=== PATIENT | female | born 1980 | race Caucasian/White ===

== ENCOUNTER 2017-04-02 07:40 | Observation (INO) | payer SELFPAY ==
[~2017-04-02] VITALS: Ht 160 cm; Wt 72.0 kg
[~2017-04-02 07:40] MED LIST: CITA20TA4 PO
[2017-04-02 07:43] VITALS: BP 149/87; PULSE 72; RESP 14; TEMP 98; O2SAT 97
[2017-04-02 08:12] LABS: AUTOMATED NEUTROPHIL # 5.3 TH/MM3 (1.8-7.7); BASOPHIL # 0.1 TH/MM3 (0-0.2); EOSINOPHIL # 0.4 TH/MM3 (0-0.4); EOSINOPHIL % 4.3 % (0.0-4.0); HEMATOCRIT 41.3 % (35.0-46.0); HEMO FLAGS DIFF FINAL; LYMPH % 25.2 % (9.0-44.0); LYMPHOCYTE # 2.1 TH/MM3 (1.0-4.8); MEAN CELL VOLUME 91.6 FL (80.0-100.0); MEAN CORPUSCULAR HEMOGLOBIN 30.4 PG (27.0-34.0); MEAN CORPUSCULAR HGB CONC 33.2 % (32.0-36.0); MONO % 7.4 % (0.0-8.0); NEUT % 62.1 % (16.0-70.0); PLATELET COUNT 169 TH/MM3 (150-450); RED BLOOD COUNT 4.51 MIL/MM3 (4.00-5.30); RED CELL DISTRIBUTION WIDTH 13.2 % (11.6-17.2); WHITE BLOOD COUNT 8.5 TH/MM3 (4.0-11.0)
--- NOTE | 2017-04-02 08:18 | PD ---
HPI Chief Complaint: Skin Problem Time Seen by Provider: 07:56 Travel History International Travel<30 days: No Contact w/Intl Traveler<30days: No Traveled to known affect area: No History of Present Illness HPI This is a 37-year-old female who presents to the emergency department with an infection of her left breast, constant for 4 days, severe associated with yellow drainage from her nipple. She says she's had this infection 4 times in the past. A third of the antibiotics although it is the worst ever been. She was trying to hold out from going to the doctor because her insurance doesn't set in until April 05 but she hasn't been sleeping and she is in severe pain so she came to the emergency department. She has felt feverish. He says she had a mammogram a year ago which was normal. [facility] Past Medical History Medical History: Denies Significant Hx Tetanus Vaccination: < 5 Years ?: Not Past Surgical History Surgical History: No Previous Surgery Social History Alcohol Use: No Tobacco Use: Yes Substance Use: No Allergies-Medications (Allergen,Severity, Reaction): Coded Allergies: No Known Allergies (Verified , 04/02/17) Reported Meds & Prescriptions Reported Meds & Active Scripts Active No Active Prescriptions or Reported Medications Review of Systems Except as stated in HPI: all other systems reviewed are Neg Physical Exam Narrative GENERAL:Well appearing, no acute distress SKIN: 6x6 cm area of erythema and induration with some fluctuance at 7:00 involving the left breast HEAD: Atraumatic. Normocephalic. EYES: Pupils equal and round. No injection or drainage. ENT: Moist mucous membranes NECK: Trachea midline. CARDIOVASCULAR: Regular rate and rhythm. No murmur appreciated. RESPIRATORY: Clear to auscultation. Breath sounds equal bilaterally. GASTROINTESTINAL: Abdomen soft, non-tender, nondistended. MUSCULOSKELETAL: No obvious deformities. NEUROLOGICAL: Awake and alert. No obvious cranial nerve deficits. Moving all extremities. PSYCHIATRIC: Appropriate mood and affect; insight and judgment normal. Data Data Last Documented VS Vital Signs Date Time Temp Pulse Resp B/P Pulse Ox O2 Delivery O2 Flow Rate FiO2 04/02/17 07:43 98.0 72 14 149/87 97 Orders Complete Blood Count With Diff (04/02/17 07:56) Comprehensive Metabolic Panel (04/02/17 07:56) ^ Insert Iv (04/02/17 07:56) Us Breast Unilateral (04/02/17 ) Clindamycin Inj (Cleocin Inj) (04/02/17 09:30) Morphine Inj (Morphine Inj) (04/02/17 09:45) Admit Order (Ed Use Only) (04/02/17 09:52) Labs Laboratory Tests Test 04/02/17 07:58 White Blood Count 8.5 TH/MM3 Red Blood Count 4.51 MIL/MM3 Hemoglobin 13.7 GM/DL Hematocrit 41.3 % Mean Corpuscular Volume 91.6 FL Mean Corpuscular Hemoglobin 30.4 PG Mean Corpuscular Hemoglobin 33.2 % Concent Red Cell Distribution Width 13.2 % Platelet Count 169 TH/MM3 Mean Platelet Volume 8.5 FL Neutrophils (%) (Auto) 62.1 % Lymphocytes (%) (Auto) 25.2 % Monocytes (%) (Auto) 7.4 % Eosinophils (%) (Auto) 4.3 % Basophils (%) (Auto) 1.0 % Neutrophils # (Auto) 5.3 TH/MM3 Lymphocytes # (Auto) 2.1 TH/MM3 Monocytes # (Auto) 0.6 TH/MM3 Eosinophils # (Auto) 0.4 TH/MM3 Basophils # (Auto) 0.1 TH/MM3 CBC Comment DIFF FINAL Differential Comment Sodium Level 140 MEQ/L Potassium Level 3.8 MEQ/L Chloride Level 106 MEQ/L Carbon Dioxide Level 26.1 MEQ/L Anion Gap 8 MEQ/L Blood Urea Nitrogen 17 MG/DL Creatinine 0.76 MG/DL Estimat Glomerular Filtration 86 ML/MIN Rate Random Glucose 98 MG/DL Calcium Level 8.5 MG/DL Total Bilirubin 0.3 MG/DL Aspartate Amino Transf 17 U/L (AST/SGOT) Alanine Aminotransferase 20 U/L (ALT/SGPT) Alkaline Phosphatase 109 U/L Total Protein 7.5 GM/DL Albumin 3.4 GM/DL MDM Medical Decision Making Medical Screen Exam Complete: Yes Emergency Medical Condition: Yes Interpretation(s) Afebrile, no tachycardia, mild hypertension No leukocytosis Electrolytes are reassuring Last 24 hours Impressions Breast Ultrasound 04/02/17 0000 Signed Impressions: Service Date/Time: Sunday, April 02, 2017 08:13 - CONCLUSION: Subcutaneous avascular abnormality at the 9:00 position, 3 cm from the nipple measuring up to 3.2 cm. Imaging appearance could fit with an abscess and this should be correlated with the clinical history and physical examination. In a patient of this age breast abscesses are typically seen in a patient who is either a smoker or recently breast-feeding. If drainage is performed, suggest followup diagnostic mammogram and ultrasound on an outpatient basis to confirm resolution and exclude any signs of malignancy. Shoaib Vivas MD Differential Diagnosis Breast abscess, mastitis, breast cancer, sepsis Narrative Course This is a 37-year-old female who presents to the emergency department with redness and pain involving the left breast. She has what I think is a discrete abscess in the left breast adjacent to the nipple area and she is placed on a monitor and an IV was established. Labs are obtained which were reassuring. She is very painful. Ultrasound demonstrates a 3 cm fluid collection. I spoke to Dr. Gross who was on-call for surgery. He recommended that the patient be evaluated for a interventional radiology for possible ultrasound-guided aspiration or incision and drainage. Patient was given a dose of clindamycin and admitted to the residents for further management. Diagnosis Primary Impression: Abscess of left breast Admitting Information Admitting Physician Requests: Observation Scripts No Active Prescriptions or Reported Meds Keara Adame MD Apr 02, 2017 08:18
[2017-04-02 08:32] LABS: ANION GAP 8 MEQ/L (5-15); AST (GOT) 17 U/L (15-37); BICARBONATE 26.1 MEQ/L (21.0-32.0); BLOOD UREA NITROGEN 17 MG/DL (7-18); CHLORIDE 106 MEQ/L (98-107); GLOMERULAR FILTRATION RATE 86 ML/MIN (>89); POTASSIUM 3.8 MEQ/L (3.5-5.1); SODIUM (NA) 140 MEQ/L (136-145)
[2017-04-02 08:34] LABS: ALT (GPT) 20 U/L (10-53)
[2017-04-02 08:36] LABS: ALKALINE PHOSPHATASE 109 U/L (45-117); TOTAL BILIRUBIN ADULT 0.3 MG/DL (0.2-1.0)
--- NOTE | 2017-04-02 09:04 | RADRPT ---
EXAM DATE/TIME: 04/02/2017 08:13 [facility] COMPARISON: No previous studies available for comparison. INDICATIONS : Left breast abscess. MEDICAL HISTORY : Left breast pain, swelling, and redness. SURGICAL HISTORY : None. ENCOUNTER: Initial ACUITY: 4-6 days PAIN SCORE: 9/10 LOCATION: Left breast. FINDINGS: Simpson scale and Doppler imaging was performed at the area of clinical concern which is located at the 9: 00 position, 3 cm from the nipple. In the immediate subcutaneous tissues there is a hypoechoic avascu lar structure measuring 2.4 x 3.2 x 1.5 cm. It demonstrates mild increased blood flow along the perip north. No connection with the skin surface is visualized. Imaging was also performed at the 9:00 posit ion, 6 cm from the nipple and this area demonstrates no abnormality. CONCLUSION: Subcutaneous avascular abnormality at the 9:00 position, 3 cm from the nipple measuring up to 3.2 cm. Imaging appearance could fit with an abscess and this should be correlated with the clinical history and physical examination. In a patient of this age breast abscesses are typically seen in a patient who is either a smoker or recently breast-feeding. If drainage is performed, suggest followup diagnos tic mammogram and ultrasound on an outpatient basis to confirm resolution and exclude any signs of ma lignancy. Shoaib Vivas MD on April 02, 2017 at 8:59 Board Certified Radiologist. This report was verified electronically.
[2017-04-02] MEDS ORDERED: CLINDAMYCIN INJ 600 MG in SODIUM CHLORIDE 0.9% INJ 100 ML IV ONE (09:30)
[2017-04-02] MEDS ORDERED: MORPHINE SULFATE 4 MG/ML INJ IV PUSH ONE (09:45)
--- NOTE | 2017-04-02 10:38 | HHI.HP ---
HPI Service Family Medicine Primary Care Physician No Primary Care Physician Admission Diagnosis breast abscess Diagnoses: International Travel<30 Days: No Contact w/Intl Traveler<30days: No Known Affected Area: No History of Present Illness Pt is a 37-year-old female presenting to the ED due to a skin infection of her left breast. She reports that the infection has been ongoing for the past 4 days. She has had 3 similar infections in the past 2 years. Prior infections resolved after treatment with oral antibiotics. The area of infection has never been as large as it is now. Pain started to become severe about 3 days ago. Last night she started to have green nipple discharge, nonbloody. Pain is located throughout her left breast. Sharp in quality, 10/ 10 in intensity, no radiation. She denies any other type of chest pain. She had a mammogram done in 2014 due to an abscess, results were normal. Patient reports that she has had an intermittent discharge from her nipples white in color since having her last child who is currently 14 years old. She denies any bloody nipple discharge. LMP 03/15-03/20. Discharge is more noticeable when she has her menstrual period. She endorses subjective fever and chills, nausea. Review of Systems Constitutional: COMPLAINS OF: Fever, Chills Eyes: DENIES: Blurred vision Ears, nose, mouth, throat: DENIES: Vertigo Respiratory: DENIES: Shortness of breath Cardiovascular: DENIES: Chest pain Gastrointestinal: DENIES: Abdominal pain Genitourinary: DENIES: Abnormal vaginal bleeding Integumentary: COMPLAINS OF: Breast skin changes, Nipple discharge Hematologic/lymphatic: DENIES: Lymphadenopathy Neurologic: COMPLAINS OF: Headache Past Family Social History Past Medical History Psoriasis Emphysema, not on any home medications Hypoglycemia 3 miscarriages youngest child is 14 yo Periods occur every 28-30 days, last 5 days, hx of irregular periods Previously took control pills and depo shot in 2012 to ??regulate periods Past Surgical History None Reported Medications Reported Meds & Active Scripts Active No Active Prescriptions or Reported Medications Excedrin Allergies: Coded Allergies: No Known Allergies (Verified , 04/02/17) Active Ordered Medications Inpatient Medications Acetaminophen (Tylenol) 650 mg Q4H PRN PO TEMP > 100.4; Start 04/02/17 at 11:00 Acetaminophen/ Hydrocodone Bitart ([place] 5-325 Mg) 1 tab Q4H PRN PO PAIN SCALE 1 TO 5; Start 04/02/17 at 11:30 Acetaminophen/ Hydrocodone Bitart ([place] 10-325 Mg) 1 tab Q4H PRN PO PAIN SCALE 6 TO 10; Start 04/02/17 at 11:30 Albuterol Sulfate (Albuterol Neb) 2.5 mg Q2HR NEB PRN INH SHORTNESS OF BREATH; Start 04/02/17 at 14:00 Albuterol/ Ipratropium (Duoneb Neb) 1 ampule Q4HR NEB PRN INH SHORTNESS OF BREATH; Start 04/02/17 at 16:00 Clindamycin Phosphate/Sodium Chloride (Cleocin Inj/NS Inj) 102 ml @ 104 mls/hr Q8H IV ; Start 04/02/17 at 18:00 Influenza Virus Vaccine (Flu (Quadrivalent) Vaccine Inj) 0.5 ml ONCE ONCE IM ; Start 04/03/17 at 10:00; Stop 04/03/17 at 10:01 Magnesium Hydroxide 30 ml 30 ml Q12H PRN PO MILD - MODERATE CONSTIPATION; Start 04/02/17 at 11:00 Morphine Sulfate (Morphine Inj) 2 mg Q3H PRN IV PUSH BREAKTHROUGH PAIN; Start 04/02/17 at 11:45 Naloxone HCl (Narcan Inj) 0.4 mg UNSCH PRN IV SEE LABEL COMMENTS; Start at 11:00 Ondansetron HCl (Zofran Inj) 4 mg Q6H PRN IVP NAUSEA OR VOMITING; Start at 11:00 Senna/Docusate Sodium (Consuelo-Colace) 1 tab BID PO ; Start 04/02/17 at 21:00 Sodium Chloride (NS Flush) 2 ml BID IV FLUSH ; Start 04/02/17 at 21:00 Temazepam (Restoril) 15 mg HS PRN PO INSOMNIA; Start 04/02/17 at 11:00 Family History Mother: Hysterectomy at 32 due to uterine cancer, cholecystectomy Father: at 48 from complications after multiple abdominal surgeries Social History 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 HEAD: Atraumatic. Normocephalic. EYES: Pupils equal round and reactive. Extraocular motions intact. No scleral icterus. No injection or drainage. ENT: Nose without bleeding, purulent drainage or septal hematoma. Pt with upper dentures. Throat without erythema, tonsillar hypertrophy or exudate. Uvula midline. Airway patent. NECK: Trachea midline. Supple, nontender, no meningeal signs. CHEST: Left breast: Patient with 4 cm right 2 cm area of induration. Edematous and erythematous. Exquisitely tender to light touch. No active drainage from this lesion. Patient with green dried crust below nipple. No active nipple discharge. Not able to express any nipple discharge. +axillary lymphadenopathy, tenderness with palpation. Pt with fibrocystic breast tissue. Right breast: Normal appearance of right breast. No axillary lymphadenopathy. No nipple discharge. FIbrocystic breast tissue. CARDIOVASCULAR: Regular rate and rhythm without murmurs, gallops, or rubs. RESPIRATORY: Clear to auscultation. Breath sounds equal bilaterally. No wheezes , rales, or rhonchi. GASTROINTESTINAL: Abdomen soft, non-tender, nondistended. No hepato-splenomegaly , or palpable masses. No guarding. MUSCULOSKELETAL: Extremities without clubbing, cyanosis, or edema. No joint tenderness, effusion, or edema noted. No calf tenderness. Negative Homans sign bilaterally. NEUROLOGICAL: Awake and alert. Cranial nerves II through XII intact. Motor and sensory grossly within normal limits. Five out of 5 muscle strength in all muscle groups. Normal speech. Laboratory Laboratory Tests Test 04/02/17 07:58 White Blood Count 8.5 Red Blood Count 4.51 Hemoglobin 13.7 Hematocrit 41.3 Mean Corpuscular Volume 91.6 Mean Corpuscular Hemoglobin 30.4 Mean Corpuscular Hemoglobin 33.2 Concent Red Cell Distribution Width 13.2 Platelet Count 169 Mean Platelet Volume 8.5 Neutrophils (%) (Auto) 62.1 Lymphocytes (%) (Auto) 25.2 Monocytes (%) (Auto) 7.4 Eosinophils (%) (Auto) 4.3 Basophils (%) (Auto) 1.0 Neutrophils # (Auto) 5.3 Lymphocytes # (Auto) 2.1 Monocytes # (Auto) 0.6 Eosinophils # (Auto) 0.4 Basophils # (Auto) 0.1 CBC Comment DIFF FINAL Differential Comment Sodium Level 140 Potassium Level 3.8 Chloride Level 106 Carbon Dioxide Level 26.1 Anion Gap 8 Blood Urea Nitrogen 17 Creatinine 0.76 Estimat Glomerular Filtration 86 Rate Random Glucose 98 Calcium Level 8.5 Total Bilirubin 0.3 Aspartate Amino Transf 17 (AST/SGOT) Alanine Aminotransferase 20 (ALT/SGPT) Alkaline Phosphatase 109 Total Protein 7.5 Albumin 3.4 Result Diagram: 04/02/17 0758 04/02/17 0758 Imaging Last 24 hours Impressions Breast Ultrasound 04/02/17 0000 Signed Impressions: Service Date/Time: Sunday, April 02, 2017 08:13 - CONCLUSION: Subcutaneous avascular abnormality at the 9:00 position, 3 cm from the nipple measuring up to 3.2 cm. Imaging appearance could fit with an abscess and this should be correlated with the clinical history and physical examination. In a patient of this age breast abscesses are typically seen in a patient who is either a smoker or recently breast-feeding. If drainage is performed, suggest followup diagnostic mammogram and ultrasound on an outpatient basis to confirm resolution and exclude any signs of malignancy. Shoaib Vivas MD Assessment and Plan Assessment and Plan Pt is a 37-year-old female admitted due to left breast abscess. General surgery consulted. Code Status Full Discussed Condition With DW Dr. Lebron, PGY1 WDW Dr. Danielson Problem List: (1) Abscess of left breast Status: Acute Plan: Patient reports several recurrent left breast abscesses over the past 2 years. Pt with significant smoking history, Also endorses occasional nipple discharge, worse during her menstrual periods, see plan below. -General surgery consulted for possible surgical drainage, appreciate recommendations and possible intervention -Consider culture of nipple discharge if there is additional drainage -Clindamycin 300mg IV TID, can transition to PO upon discharge -Warm compresses to be applied QID (2) Nipple discharge Status: Acute Plan: Pt reports intermittent bilateral nipple discharge, more significant during her menses. Pt reports benign mammogram in 2014. -Possibly physiologic, will check PTH to rule out hyperprolactinemia -Consider obtaining sample if pt develops discharge. (3) History of emphysema Status: Acute Plan: Pt reports history of emphysema, her breathing has been well-controlled without any prescription medications. -Albuterol neb Q2hrs PRN SOB -Duonebs Q4hrs PRN SOB -Continue to monitor (4) FEN/PPX Status: Acute Plan: Fluid: None, pt able to tolerate PO Electrolytes: within normal limits, ocntinue to monitor Nutrition: regular diet DVT PPX: Will hold in anticipation of surgical drainage of abscess GI PPX: Not indicated Yusef Rowan MD R2 Apr 02, 2017 10:38
[2017-04-02] MEDS ORDERED: ONDANSETRON HCL 4 MG/2 ML VIAL IVP PRN (11:00)
[2017-04-02] MEDS ORDERED: SODIUM CHLORIDE 0.9% FLUSH 10 ML FLUSH IV FLUSH PRN (11:00)
[2017-04-02] MEDS ORDERED: TEMAZEPAM 15 MG CAP PO PRN (11:00)
[2017-04-02] MEDS ORDERED: MAGNESIUM HYDROXIDE SUSP 30 ML CUP PO PRN (11:00)
[2017-04-02] MEDS ORDERED: NALOXONE HCL 0.4 MG/ML AMP IV PRN (11:00)
[2017-04-02] MEDS ORDERED: ACETAMINOPHEN 325 MG TAB PO PRN (11:00)
[2017-04-02] MEDS ORDERED: ACETAMINOPHEN/HYDROcodone 325 MG/10 MG TAB PO PRN (11:30)
[2017-04-02] MEDS ORDERED: ACETAMINOPHEN/HYDROcodone 325 MG/5 MG TAB PO PRN (11:30)
[2017-04-02] MEDS ORDERED: MORPHINE SULFATE 4 MG/ML INJ IV PUSH PRN (11:45)
[2017-04-02 12:08] VITALS: O2SAT 97
[2017-04-02] MEDS ORDERED: RESP: ALBUTEROL 2.5 MG/3 ML NEB (PRN) INH (14:00)
[2017-04-02 15:17] VITALS: BP 122/78; PULSE 61; RESP 18; TEMP 98.6; O2SAT 98
[2017-04-02 15:45] LABS: INTERNATIONAL NORMALIZED RATIO 0.9 RATIO; PROTHROMBIN TIME - PATIENT 10.3 SEC (9.8-11.6)
[2017-04-02] MEDS ORDERED: LIDOCAINE HCL 1% PF 30 ML VIAL ONE (15:55)
[2017-04-02] MEDS ORDERED: RESP: ALBUTEROL 2.5 MG/IPRATROPIUM 0.5 MG NEB (PRN) INH (16:00)
--- NOTE | 2017-04-02 16:07 | PD.RAD ---
Post US Procedure Prog Note Pre Procedure Diagnosis: (1) Abscess of left breast Post Procedure Diagnosis: (1) Abscess of left breast (2) Nipple discharge Procedure Date: Apr 02, 2017 Supervising Radiologist: Shoaib Vivas Proceduralist/Assist: Kelly Echols RDMS Estimated blood loss: minimal Anesthesia: Local Plan of Activity Patient to Unit: Other (ED) Patient Condition: Good Additional Comments: superficial breast abscess partially decompressed with aspiration. Purulent nipple discharge during aspiration. See PACS Report for procedural detail/treatment Drainage Procedure Procedure 1 Imaging Guidance: Ultrasound Side: Left Procedure Type: Abscess Drainage Fluid Removal (CCs): 4 Fluid Description: Green Findings: 4cc green purulent material aspirated and saved for culture. There remains abnormal inflamed material that is too thick for aspiration. Plan Return to ED. Will need 10 to 14 day course of outpatient antibiotics then followup imaging to ensure resolution. May need repeat aspiration. Consider breast surgeon followup. Shoaib Vivas MD Apr 02, 2017 16:07
[2017-04-02 16:18] VITALS: BP 121/79; PULSE 68; RESP 18; TEMP 98.1; O2SAT 97
--- NOTE | 2017-04-02 16:21 | RADRPT ---
EXAM DATE/TIME: 04/02/2017 15:13 [facility] COMPARISON: No previous studies available for comparison. INDICATIONS : Left breast abscess. MEDICAL HISTORY : Left breast pain, swelling, and redness. SURGICAL HISTORY : None. ENCOUNTER: Subsequent ACUITY: 4 - 6 days PAIN SCORE: 10/10 LOCATION: Left breast. FLUID: Total volume of 4 cc of cloudy, red green fluid was removed. Fluid was sent to lab for ordered studies. Post procedure scanning reveals no hematoma or other complication. TECHNIQUE: 1. Ultrasound guidance for needle aspiration. 2. Aspiration. The risks, benefits, and alternatives to ultrasound guided aspiration were explained to the patient i n detail including the risk of bleeding and infection. Written and verbal informed consent was obtai giulia. With the patient on the ultrasound table, ultrasound imaging was used to select the most appropriate approach for aspiration. The patient's medial left breast demonstrates marked erythema with visible lump. The adjacent nipple demonstrates a retraction and abnormal appearance with slight purulent drai nage from the nipple. Overlying skin was prepped and draped in the usual sterile fashion and with loc al anesthetic a dermatotomy was made with an 11 blade scalpel. An 18 gauge needle was utilized to asp irate. CONCLUSION: Uncomplicated left breast abscess aspiration with removal of 4 cc of green purulent material. Sample was saved and sent to lab for microbiology analysis. The abscess has decreased in size following the procedure however, inflamed infected material remains. Consider breast surgeon consultation versus 2 week outpatient antibiotic trial with followup ultrasound imaging to confirm resolution. If it does n ot resolve repeat aspiration may be needed. Patient ultimately should have diagnostic mammogram and u ltrasound followup. Shoaib Vivas MD on April 02, 2017 at 16:16 Board Certified Radiologist. This report was verified electronically.
--- NOTE | 2017-04-02 16:53 | PD.CONS ---
cc: German Gross MD HPI Service General Surgery Consult Requested By Dr. Rowan Reason for Consult LEFT breast abscess Primary Care Physician No Primary Care Physician History of Present Illness This is a 37-year-old female with past medical history of psoriasis, stage I emphysema and hypoglycemia. She developed a sharp pain in her LEFT breast that she rates a 10 out of 10. She first noticed the pain and lump in her left breast approximately 4 days prior to admission. She has had 4 similar episodes in the past and have been treated with antibiotics. An ultrasound of the LEFT breast was obtained which showed a subcutaneous avascular abscess fluid collection at the 9 o'clock position. An ultrasound-guided breast aspiration has already been ordered. The patient had a mammogram done in 2014 which was normal. A General Surgery consultation has been requested for evaluation of left breast abscess. Review of Systems Constitutional: DENIES: Fever, Chills, Dizziness Endocrine: DENIES: Polydipsia, Polyuria, Polyphagia Eyes: DENIES: Diplopia Ears, nose, mouth, throat: DENIES: Hearing loss Respiratory: DENIES: Cough, Snoring Cardiovascular: DENIES: Palpitations, Syncope Gastrointestinal: DENIES: Abdominal pain, Nausea, Vomiting Genitourinary: DENIES: Urinary frequency, Urinary incontinence Musculoskeletal: DENIES: Joint pain Integumentary: COMPLAINS OF: Breast masses (LEFT breast: 9 oclock position redness/tender ) Hematologic/lymphatic: DENIES: Bruising Immunologic/allergic: DENIES: Eczema Neurologic: DENIES: Abnormal gait, Headache Psychiatric: DENIES: Confusion, Mood changes, Depression Past Family Social History Past Medical History Psoriasis Stage I emphysema Hypoglycemia Past Surgical History None Reported Medications None Allergies: Coded Allergies: No Known Allergies (Verified , 04/02/17) Active Ordered Medications Current Medications Medications (Trade) Dose Ordered Sig/Zahira Route Start Time Stop Time Status Last Admin (NS Flush) 2 ml UNSCH PRN IV FLUSH 04/02/17 11:00 (NS Flush) 2 ml BID IV FLUSH 04/02/17 21:00 (Tylenol) 650 mg Q4H PRN PO 04/02/17 11:00 (Zofran Inj) 4 mg Q6H PRN IVP 04/02/17 11:00 (Restoril) 15 mg HS PRN PO 04/02/17 11:00 (Narcan Inj) 0.4 mg UNSCH PRN IV 04/02/17 11:00 (Consuelo-Colace) 1 tab BID PO 04/02/17 21:00 Magnesium Hydroxide 30 ml 30 ml Q12H PRN PO 04/02/17 11:00 (Cleocin Inj/NS Inj) 102 ml @ 104 mls/hr Q8H IV 04/02/17 18:00 ([facility] 5-325 Mg) 1 tab Q4H PRN PO 04/02/17 11:30 ([facility] 10-325 Mg) 1 tab Q4H PRN PO 04/02/17 11:30 (Morphine Inj) 2 mg Q3H PRN IV PUSH 04/02/17 11:45 (Flu (Quadrivalent) Vaccine Inj) 0.5 ml ONCE ONCE IM 04/03/17 10:00 04/03/17 10:01 Family History No family history of breast cancer Social History Positive tobacco useone pack per day Denies EtOH use Denies illicit drug use Physical Exam Vital Signs Vital Signs Date Time Temp Pulse Resp B/P Pulse Ox O2 Delivery O2 Flow Rate FiO2 04/02/17 16:18 98.1 68 18 121/79 97 04/02/17 15:17 98.6 61 18 122/78 98 04/02/17 12:08 97 21 04/02/17 07:43 98.0 72 14 149/87 97 Physical Exam GENERAL: A 37-year-old female resting in bed in no acute distress SKIN: LEFT breast: s/p ultrasound aspiration---dressing removed--small amount of purulent drainage; tender. Otherwise skin exam negative. HEAD: Atraumatic. Normocephalic. EYES: Pupils equal and round. No scleral icterus. No injection or drainage. ENT: No nasal bleeding or discharge. Mucous membranes pink and moist. NECK: Trachea midline. CARDIOVASCULAR: Regular rate and rhythm. RESPIRATORY: No accessory muscle use. Clear to auscultation. Breath sounds equal bilaterally. GASTROINTESTINAL: Abdomen soft, non-tender, nondistended. MUSCULOSKELETAL: Extremities without clubbing, cyanosis, or edema. No obvious deformities. NEUROLOGICAL: Awake and alert. No obvious cranial nerve deficits. Motor grossly within normal limits. Five out of 5 muscle strength in the arms and legs. Normal speech. PSYCHIATRIC: Appropriate mood and affect; insight and judgment normal. Laboratory Laboratory Tests Test 04/02/17 04/02/17 07:58 15:00 White Blood Count 8.5 Red Blood Count 4.51 Hemoglobin 13.7 Hematocrit 41.3 Mean Corpuscular Volume 91.6 Mean Corpuscular Hemoglobin 30.4 Mean Corpuscular Hemoglobin 33.2 Concent Red Cell Distribution Width 13.2 Platelet Count 169 Mean Platelet Volume 8.5 Neutrophils (%) (Auto) 62.1 Lymphocytes (%) (Auto) 25.2 Monocytes (%) (Auto) 7.4 Eosinophils (%) (Auto) 4.3 Basophils (%) (Auto) 1.0 Neutrophils # (Auto) 5.3 Lymphocytes # (Auto) 2.1 Monocytes # (Auto) 0.6 Eosinophils # (Auto) 0.4 Basophils # (Auto) 0.1 CBC Comment DIFF FINAL Differential Comment Sodium Level 140 Potassium Level 3.8 Chloride Level 106 Carbon Dioxide Level 26.1 Anion Gap 8 Blood Urea Nitrogen 17 Creatinine 0.76 Estimat Glomerular Filtration 86 Rate Random Glucose 98 Calcium Level 8.5 Total Bilirubin 0.3 Aspartate Amino Transf 17 (AST/SGOT) Alanine Aminotransferase 20 (ALT/SGPT) Alkaline Phosphatase 109 Total Protein 7.5 Albumin 3.4 Prothrombin Time 10.3 Prothromb Time International 0.9 Ratio Activated Partial 27.0 Thromboplast Time Parathyroid Hormone (Intact) 65.1 Result Diagram: 04/03/1770404/03/17704 Imaging Last 48 hours Impressions Needle Aspiration Ultrasound 04/02/17 0000 Signed Impressions: Service Date/Time: Sunday, April 02, 2017 15:13 - CONCLUSION: Uncomplicated left breast abscess aspiration with removal of 4 cc of green purulent material. Sample was saved and sent to lab for microbiology analysis. The abscess has decreased in size following the procedure however, inflamed infected material remains. Consider breast surgeon consultation versus 2 week outpatient antibiotic trial with followup ultrasound imaging to confirm resolution. If it does not resolve repeat aspiration may be needed. Patient ultimately should have diagnostic mammogram and ultrasound followup. Shoaib Vivas MD Breast Ultrasound 04/02/17 0000 Signed Impressions: Service Date/Time: Sunday, April 02, 2017 08:13 - CONCLUSION: Subcutaneous avascular abnormality at the 9:00 position, 3 cm from the nipple measuring up to 3.2 cm. Imaging appearance could fit with an abscess and this should be correlated with the clinical history and physical examination. In a patient of this age breast abscesses are typically seen in a patient who is either a smoker or recently breast-feeding. If drainage is performed, suggest followup diagnostic mammogram and ultrasound on an outpatient basis to confirm resolution and exclude any signs of malignancy. Shoaib Vivas MD Assessment and Plan Assessment and Plan 37 year old female with LEFT breast abscess -Agree with US guided drainage of abscess -Clindamycin -Follow cultures -Will evaluate in the morning again -Monitor for fevers -Thank you for this consult; We will continue to follow Discussed Condition With Dr. Renato Garcia Attending Statement patient seen at bedside recurrent breast infection pt is a smoker and has skin condition which may be the cause she may need biopsy though due to r/o cancer will follow and eval for resolution after ir aspiration Attestation The exam, history, and the medical decision-making described in the above note were completed with the assistance of the mid-level provider. I reviewed and agree with the findings presented. I attest that I had a [id number] encounter with the patient on the same day, and personally performed and documented my assessment and findings in the medical record. Mami Mehta Apr 02, 2017 16:52 German Gross MD Apr 06, 2017 15:47
[2017-04-02] MEDS: CLINDAMYCIN INJ 300 MG in SODIUM CHLORIDE 0.9% INJ 100 ML IV SCH (19:11)
[2017-04-02 19:40] VITALS: BP 118/60; PULSE 71; RESP 20; TEMP 98.6; O2SAT 97
[2017-04-02] MEDS: SODIUM CHLORIDE 0.9% FLUSH 10 ML FLUSH IV FLUSH SCH (22:14)
[2017-04-02] MEDS: DOCUSATE SODIUM 50 MG/SENNA 8.6 MG TAB PO SCH (22:14)
[2017-04-03 00:07] VITALS: BP 109/53; PULSE 69; RESP 20; TEMP 98.4; O2SAT 97
[2017-04-03] MEDS: CLINDAMYCIN INJ 300 MG in SODIUM CHLORIDE 0.9% INJ 100 ML IV SCH ×2 (01:58→10:23)
[2017-04-03 03:36] VITALS: BP 116/71; PULSE 70; RESP 20; TEMP 98.4; O2SAT 98
--- NOTE | 2017-04-03 07:19 | HHI.DCPOC ---
Discharge Care Plan Diagnosis: (1) Abscess of left breast (2) History of emphysema (3) Nipple discharge Goals to Promote Your Health * To prevent worsening of your condition and complications * To maintain your health at the optimal level Directions to Meet Your Goals Take your medications as prescribed Follow your dietary instruction Follow activity as directed Keep your appointments as scheduled Take your immunizations and boosters as scheduled If your symptoms worsen call your PCP, if no PCP go to Urgent Care Center or Emergency Room Smoking is Dangerous to Your Health. Avoid second hand smoke Call the 24-hour hour crisis hotline for domestic abuse at Yusef Rowan MD R2 Apr 03, 2017 07:19
[2017-04-03 07:21] VITALS: BP 115/64; PULSE 63; RESP 18; TEMP 98; O2SAT 98
[2017-04-03 08:04] LABS: AUTOMATED NEUTROPHIL # 3.4 TH/MM3 (1.8-7.7); BASOPHIL % 0.6 % (0.0-2.0); EOSINOPHIL # 0.2 TH/MM3 (0-0.4); EOSINOPHIL % 3.9 % (0.0-4.0); HEMATOCRIT 37.2 % (35.0-46.0); HEMO FLAGS DIFF FINAL; LYMPH % 32.8 % (9.0-44.0); MEAN CELL VOLUME 90.6 FL (80.0-100.0); MEAN CORPUSCULAR HEMOGLOBIN 30.6 PG (27.0-34.0); MEAN CORPUSCULAR HGB CONC 33.8 % (32.0-36.0); MONO % 7.8 % (0.0-8.0); NEUT % 54.9 % (16.0-70.0); PLATELET COUNT 140 TH/MM3 (150-450); RED BLOOD COUNT 4.11 MIL/MM3 (4.00-5.30); RED CELL DISTRIBUTION WIDTH 13.2 % (11.6-17.2); WHITE BLOOD COUNT 6.1 TH/MM3 (4.0-11.0)
[2017-04-03 08:16] LABS: BICARBONATE 23.9 MEQ/L (21.0-32.0); BLOOD UREA NITROGEN 19 MG/DL (7-18); GLOMERULAR FILTRATION RATE 106 ML/MIN (>89)
[2017-04-03 08:18] LABS: ALT (GPT) 17 U/L (10-53)
[2017-04-03 08:30] LABS: ALKALINE PHOSPHATASE 95 U/L (45-117); AST (GOT) 12 U/L (15-37); TOTAL BILIRUBIN ADULT 0.4 MG/DL (0.2-1.0)
[2017-04-03 08:54] LABS: ANION GAP 8 MEQ/L (5-15); CHLORIDE 109 MEQ/L (98-107); SODIUM (NA) 141 MEQ/L (136-145)
[2017-04-03] MEDS ORDERED: CLIN1CAP6 PO (09:20)
[2017-04-03] MEDS ORDERED: IBUP-232 PO (09:22)
[2017-04-03] MEDS ORDERED: INFLUENZA VIRUS VACCINE (QUADRIVALENT) 0.5 ML SYR IM ONE (10:00)
[2017-04-03] MEDS: SODIUM CHLORIDE 0.9% FLUSH 10 ML FLUSH IV FLUSH SCH (10:23)
[2017-04-03] MEDS: DOCUSATE SODIUM 50 MG/SENNA 8.6 MG TAB PO SCH (10:24)
--- NOTE | 2017-04-03 11:11 | HHI.FPPN ---
Subjective Remarks Patient seen and examined this morning. No acute events over night. Patient states that she is feeling better today. Reports decreased pain in her breast, no pain in her axillary region, reduced swelling. Only mild pain over the area of the abscess, medial to the left nipple. Some bloody drainage. No other complaints of nausea, vomiting, fever, chills, chest pain, shortness of breath, abdominal pain, change in bowel habits, change in urinary habits. (Earnest Lebron MD R1) Objective Vitals Vital Signs Date Time Temp Pulse Resp B/P Pulse Ox O2 Delivery O2 Flow Rate FiO2 04/03/17 09:40 21 04/03/17 07:21 98.0 63 18 115/64 98 04/03/17 03:36 98.4 70 20 116/71 98 04/03/17 00:07 98.4 69 20 109/53 97 04/02/17 19:40 98.6 71 20 118/60 97 04/02/17 16:18 98.1 68 18 121/79 97 04/02/17 15:17 98.6 61 18 122/78 98 04/02/17 12:08 97 21 (Earnest Lebron MD R1) Result Diagram: 04/03/17 0705 04/03/17 0705 Imaging Last Impressions Needle Aspiration Ultrasound 04/02/17 0000 Signed Impressions: Service Date/Time: Sunday, April 02, 2017 15:13 - CONCLUSION: Uncomplicated left breast abscess aspiration with removal of 4 cc of green purulent material. Sample was saved and sent to lab for microbiology analysis. The abscess has decreased in size following the procedure however, inflamed infected material remains. Consider breast surgeon consultation versus 2 week outpatient antibiotic trial with followup ultrasound imaging to confirm resolution. If it does not resolve repeat aspiration may be needed. Patient ultimately should have diagnostic mammogram and ultrasound followup. Shoaib Vivas MD Breast Ultrasound 04/02/17 0000 Signed Impressions: Service Date/Time: Sunday, April 02, 2017 08:13 - CONCLUSION: Subcutaneous avascular abnormality at the 9:00 position, 3 cm from the nipple measuring up to 3.2 cm. Imaging appearance could fit with an abscess and this should be correlated with the clinical history and physical examination. In a patient of this age breast abscesses are typically seen in a patient who is either a smoker or recently breast-feeding. If drainage is performed, suggest followup diagnostic mammogram and ultrasound on an outpatient basis to confirm resolution and exclude any signs of malignancy. Shoaib Vivas MD Objective Remarks GENERAL: Laying in bed, no distress, comfortable SKIN: Warm and dry. Left breast covered with clean, dry sterile dressing. Some serosanguineous discharge noted on the dressing. Abscess palpated, decreased in size and tenderness. Some bloody discharge from left nipple. Tenderness contained to directly over and surrounding the abscess, none in the axilla. Not hot, mild erythema. HEAD: Atraumatic. Normocephalic. EYES: Pupils equal and round. No scleral icterus. No injection or drainage. ENT: No nasal bleeding or discharge. Mucous membranes pink and moist. NECK: Trachea midline. No JVD. CARDIOVASCULAR: Regular rate and rhythm. RESPIRATORY: No accessory muscle use. Clear to auscultation. Breath sounds equal bilaterally. GASTROINTESTINAL: Abdomen soft, non-tender, nondistended. Hepatic and splenic margins not palpable. MUSCULOSKELETAL: Extremities without clubbing, cyanosis, or edema. No obvious deformities. NEUROLOGICAL: Awake and alert. No obvious cranial nerve deficits. Motor grossly within normal limits. Five out of 5 muscle strength in the arms and legs. Normal speech. PSYCHIATRIC: Appropriate mood and affect; insight and judgment normal. (Earnest Lebron MD R1) A/P Assessment and Plan Pt is a 37-year-old female admitted due to left breast abscess. Drained by IR yesterday as noted above. ~ 4cc purulent material aspirated and saved for culture. Clinically improving. (Earnest Lebron MD R1) Attending Attestation Patient seen and examined. Case reviewed and discussed with the resident team in detail. EMR reviewed. Agree with plan of care as discussed with me and documented in the resident note. (Charles Danielson MD) Problem List: (1) Abscess of left breast Status: Acute Plan: Patient reports several recurrent left breast abscesses over the past 2 years. Pt with significant smoking history, Also endorses occasional nipple discharge, worse during her menstrual periods, see plan below. - Drained by IR 04/02 -Wound culture gram cocci in pairs -Clindamycin 300mg IV TID, can transition to PO upon discharge -Warm compresses to be applied QID (2) Nipple discharge Status: Acute Plan: Pt reports intermittent bilateral nipple discharge, more significant during her menses. Pt reports benign mammogram in 2015. -PTH within normal limits -Consider obtaining sample if pt develops discharge. (3) History of emphysema Status: Acute Plan: Pt reports history of emphysema, her breathing has been well-controlled without any prescription medications. -Albuterol neb Q2hrs PRN SOB -Duonebs Q4hrs PRN SOB -Continue to monitor (4) FEN/PPX Status: Acute Plan: Fluid: None, pt able to tolerate PO Electrolytes: within normal limits, ocntinue to monitor Nutrition: regular diet DVT PPX: To be discharged today GI PPX: Not indicated (Earnest Lebron MD R1) Earnest Lebron MD R1 Apr 03, 2017 11:11 Charles Danielson MD Apr 04, 2017 17:00
== END 2017-04-03 12:59 | disposition home or self-care (01) ==
LOC: NEPE 07:40 → NEDA 09:53 → NEPHCDU 13:15
PROVIDERS: ADMIT Family Medicine; ATTEND Family Medicine
DX: N61.1 Abscess of the breast and nipple (principal); J43.9 Emphysema, unspecified; L40.9 Psoriasis, unspecified; F17.200 Nicotine dependence, unspecified, uncomplicated; B96.89 Other specified bacterial agents as the cause of diseases classified elsewhere
CPT/HCPCS: 19000; 76642; 76942; 80053; 82397; 83970; 85025; 85610; 85730; 86403; 87070; 87205; 96365; 96366; 96375; 96376; 97161; 99285; G0378; G8987; G8988; G8989; J2270